=== PATIENT | male | born 1980 | race Caucasian/White ===

== ENCOUNTER 2017-06-07 10:49 | Day surgery (SDC) | payer OTHER ==
[2017-06-06 15:02] VITALS: BMI 24.7
[2017-06-07] MEDS ORDERED: PROPOFOL 20 ML ONE ×3 (11:37)
[2017-06-07 13:11] VITALS: TEMP 97.5
[2017-06-07 13:37] VITALS: BP 118/77; PULSE 69
--- NOTE | 2017-06-08 14:16 | PATH ---
Surgical Pathology Report Patient Name: DANIEL BOWMAN [facility]. Rec. #: [id number] /Age/Gender: 1980 (Age: 36) / M Account: [id number] Location: U-ENDOSCOPY Taken: 06/07/2017 Received: 06/07/2017 Reported: 06/08/2017 Physicians: Ryder Piper D.O. Specimen(s) Received BX TERMINAL ILEUM Clinical History Abdominal pain Postoperative diagnosis: Same Final Diagnosis TERMINAL ILEUM, BIOPSY: ILEAL MUCOSA WITHOUT SIGNIFICANT PATHOLOGIC FINDINGS. Electronically Signed Holly Reddy M.D. Gross Description Received in formalin, labeled "biopsy terminal ileum" are 2 mohamud, irregular portions of soft tissue averaging 0.3 cm. in greatest dimension. The specimens are submitted in toto in one cassette. 06/07/2017 [facility]06/07/2017
== END 2017-06-07 13:45 | disposition home or self-care (01) ==
LOC: JASU-ENDO 10:49
PROVIDERS: ATTEND Internal Medicine Gastroenterology
PROC: 0DBB8ZX Excision of Ileum, Via Natural or Artificial Opening Endoscopic, Diagnostic (ICD-10-PCS; principal; 2017-06-07 12:30)
DX: R10.9 Unspecified abdominal pain (principal)
CPT/HCPCS: 88305-TC